=== PATIENT | female | born 1995 | race Hispanic/Latino ===

== ENCOUNTER → 2020-05-12 | Outpatient (CLI) | payer OTHER ==
[~2020-05-12] MED LIST: ASPI-161 PO; PRENTAB53 PO
== END ==
LOC: M RAD 13:15
PROVIDERS: ATTEND Registered Nurse Maternal Newborn
DX: Z34.83 Encounter for supervision of other normal pregnancy, third trimester (principal); Z3A.35 35 weeks gestation of pregnancy

== ENCOUNTER 2020-05-21 08:14 | Inpatient (IN) | payer OTHER ==
[2020-05-21] MEDS ORDERED: miSOPROStol 25 MCG 1/4 TAB (S0191) As Ordered ONE (10:14)
[2020-05-21] MEDS ORDERED: miSOPROStol 50 MCG 1/2 TAB (S0191) As Ordered ONE ×2 (14:13→19:29)
[2020-05-22] MEDS ORDERED: OXYTOCIN 30 UNITS IN 0.9% NaCl 500ML IV BAG (J2590) As Ordered ONE (08:54)
[2020-05-22] MEDS ORDERED: FENTANYL 2MCG/ML ROPIVACAINE 0.2% IN 0.9% NACL 100ML IVBAG As Ordered ONE (17:19)
[2020-05-23] MEDS ORDERED: ACETAMINOPHEN 325 MG TAB As Ordered ONE (12:05)
[2020-05-23] MEDS ORDERED: PRENTAB53 PO (14:30)
[2020-05-23] MEDS ORDERED: ASPI-161 PO (14:30)
[2020-05-23] MEDS ORDERED: MEASLES,MUMPS,RUBELLA VACCINE INJ (MMR-II) (90707) SQ SCH (14:45)
[2020-05-23] MEDS ORDERED: RHOGAM 300 MCG (1500 IU) INJ (J2790) IM SCH (14:45)
[2020-05-23] MEDS ORDERED: IBUPROFEN 800 MG TAB PO PRN (14:45)
[2020-05-23] MEDS ORDERED: DOCUSATE SODIUM 100 MG CAP PO PRN (14:45)
[2020-05-23] MEDS ORDERED: MOM 30ML SUSPENSION UDC PO PRN (14:45)
[2020-05-23] MEDS ORDERED: ANUSOL HC CREAM 30GM TOP PRN (14:45)
[2020-05-23] MEDS ORDERED: ACETAMINOPHEN TAB 650MG DOSE (2X325MG) PO PRN (14:45)
[2020-05-23] MEDS ORDERED: METHYLERGONOVINE MALEATE 0.2 MG TAB PO PRN (14:45)
--- NOTE | 2020-07-11 07:06 | HPE ---
DATE OF ADMISSION: 05/21/2020 A 24-year-old 1, para 0, last menstrual period (LMP) 09/05/2019, estimated date of confinement (EDC) 06/11/2020 at 37 weeks of gestation, admitted for induction of labor for small for gestation age. RISK FACTORS: She had gastric bypass, elevated quad screen. LABORATORY DATA: O positive, HIV negative, hepatitis negative, RPR negative, rubella immune, Varicella immune, urine negative. Gonorrhea and chlamydia are negative. GBS negative. A1c was 4.7, glucose was 68. Blood pressure presently 103/82, respirations 18, pulse 67, temperature 96. Urine is 1015, pH of 5, positive leuks, and 1+ protein. Ultrasound on April 27 indicated small for gestation age (SGA) at 3.82 pounds. Grade 1 placenta. Systolic/diastolic (S/D) ratio was normal. On 05/08/2020, at [facility] agreed with SGA as opposed to IUGR, 4 pounds 7 ounces. Placenta and S/D ratio were normal. On 05/17/2020, 5 pounds 1 ounce, 2259 grams, diagnosed as SGA, Placenta was normal, and S/D ratio was normal. Patient was electively booked for induction of labor. On examination, no distress. Symphysis fundus height is 36, vertex presenting, posterior, 1 cm, thick, -3 station. No discharge and no bleeding. We discussed the risks and benefits of induction of labor, including the possibility for placental insufficiency related to small for gestational age, non reassuring heart with surgical intervention by section, surgical intervention because of a large BMA, and previous Lazaro-en-Y procedure. Our plan of care was to use Cytotec by mouth, step-wising dose from 25 mg up, after which when cervix is favorable, possibility of a balloon or balloon catheter and/or Pitocin. After asking all questions, case to proceed, category 1 strip. Cytotec was ordered. MTDD
--- NOTE | 2020-07-15 08:39 | IPN ---
DATE: 05/22/2020 SUBJECTIVE: This is a 24-year-old 1 para 0. She is at 37 and 1 weeks of gestation, induction of labor for small for gestational age. She had three LOTS of Misoprostol overnight, had a few contractions, slept overnight, Category I strip presently. RECOMMENDATIONS AND PLAN: Our plan of care is to have breakfast, shower and restart with Cytotec possibly using a Doll bulb and/or Pitocin when cervix becomes amenable to that method of induction of labor. Patient expressed an understanding of the plan of care. KEN
--- NOTE | 2020-07-15 08:41 | IPN ---
DATE: 05/21/2020 TIME: 2120 hours This lady was admitted at 37 weeks because of small for gestational age induction of labor. She had initially 25 mg Cytotec per os, had no contractions, no decelerations, had a category 1 strip. She was up to 50 mg by mouth 4 hours later, again just having some minimal tightenings and contractions. Therefore, a third dose of 50 mg by mouth was given and she was having some more increased uterine irritability, she had moderate variability with no contractions, no decelerations. Our plan of care, is to allow her to sleep overnight if she can without increasing the misoprostol or Cytotec and reestablish evaluation of cervix in the morning with the possibility of Pitocin and/or a Cooks catheter. The patient expressed understanding and plan of care. Category 1 strip. Safe to proceed. MTDD
[2020-08-01 10:03] LABS: HEMATOCRIT 35.7 % (36.0-47.0); HEMOGLOBIN 12.1 g/dl (12.0-15.5); MEAN CORPUSCULAR HEMOGLOBIN 28.8 pg (27.0-33.0); MEAN CORPUSCULAR HGB CONC 33.9 g/dl (32.0-36.5); PLATELET COUNT, AUTOMATED 224 10^3/uL (150-450); WHITE BLOOD COUNT 7.8 10^3/uL (4.0-10.0)
== END 2020-05-24 17:15 | disposition home or self-care (01) | DRG 807 ==
LOC: M OBS 08:14
PROVIDERS: ADMIT Obstetrics & Gynecology; ATTEND Obstetrics & Gynecology
PROC: 3E0DXGC Introduction of Other Therapeutic Substance into Mouth and Pharynx, External Approach (ICD-10-PCS; 2020-05-21)
PROC: 10D07Z6 Extraction of Products of Conception, Vacuum, Via Natural or Artificial Opening (ICD-10-PCS; principal; 2020-05-22)
PROC: 0HQ9XZZ Repair Perineum Skin, External Approach (ICD-10-PCS; 2020-05-22)
PROC: 3E033VJ Introduction of Other Hormone into Peripheral Vein, Percutaneous Approach (ICD-10-PCS; 2020-05-22)
DX: O36.5930 Maternal care for other known or suspected poor fetal growth, third trimester, not applicable or unspecified (principal); Z37.0 Single live birth; O70.0 First degree perineal laceration during delivery; Z3A.37 37 weeks gestation of pregnancy; O76 Abnormality in fetal heart rate and rhythm complicating labor and delivery

== ENCOUNTER → 2020-08-17 | Outpatient (CLI) | payer OTHER ==
--- NOTE | 2020-08-18 03:16 | REP ---
INDICATION: LOW BACK PAIN COMPARISON: None. TECHNIQUE: AP, lateral, flexion/extension, bilateral oblique, and coned-down views. FINDINGS: Alignment and lordosis is maintained. The vertebral bodies including transverse process and spinous processes are intact and normal. There is no evidence for acute fracture / compression injury or subluxation. No evidence for spondylolysis or spondylolisthesis. No significant degenerative change is noted. IMPRESSION: Normal lumbosacral spine radiograph series. <Electronically signed by Kwesi Joshua > 08/18/20 [id number]
== END ==
LOC: M RAD 11:34
PROVIDERS: ATTEND Physician Assistant
DX: M54.5 Low back pain (principal)

== ENCOUNTER → 2021-08-23 | Outpatient (CLI) | payer OTHER ==
[2021-08-23 14:04] LABS: BASO % 0.1 % (0.0-1.0); EOS # 0.1 10^3/uL (0.0-0.5); EOS % 1.3 % (0.0-3.0); HEMOGLOBIN 8.9 g/dl (12.0-15.5); LYMPH # 2.2 10^3/uL (1.5-5.0); LYMPH % 32.6 % (24.0-44.0); MEAN CORPUSCULAR HEMOGLOBIN 19.9 pg (27.0-33.0); MEAN CORPUSCULAR HGB CONC 28.7 g/dl (32.0-36.5); MEAN CORPUSCULAR VOLUME 69.4 fl (80.0-96.0); MONO # 0.5 10^3/uL (0.0-0.8); MONO % 6.9 % (2.0-8.0); NEUTROPHILS # 3.9 10^3/uL (1.5-8.5); NEUTROPHILS % 58.8 % (36.0-66.0); PLATELET COUNT, AUTOMATED 391 10^3/uL (150-450); RED BLOOD COUNT 4.47 10^6/uL (4.00-5.40); WHITE BLOOD COUNT 6.7 10^3/uL (4.0-10.0)
[2021-08-23 15:17] LABS: HEPATITIS C VIRUS ABY INDEX 0.1 INDEX (<0.8); HIV 1&2 SCREEN CENTAUR NEGATIVE (NEGATIVE)
[2021-08-23 15:36] LABS: GC DNA AMPLIFICATION NEGATIVE (NEGATIVE)
== END ==
LOC: M PLALAB 10:52
PROVIDERS: ATTEND Obstetrics & Gynecology
DX: Z34.91 Encounter for supervision of normal pregnancy, unspecified, first trimester (principal); Z3A.00 Weeks of gestation of pregnancy not specified

== ENCOUNTER → 2021-11-02 | Outpatient (CLI) | payer OTHER | LOC: M PLALAB 12:34 | PROVIDERS: ATTEND Advanced Practice Midwife | DX: Z34.82 Encounter for supervision of other normal pregnancy, second trimester (principal) ==

== ENCOUNTER → 2021-11-14 | Outpatient (CLI) | payer OTHER | LOC: M WHC 11:51 | PROVIDERS: ATTEND Advanced Practice Midwife | DX: O99.012 Anemia complicating pregnancy, second trimester (principal); Z3A.20 20 weeks gestation of pregnancy ==

== ENCOUNTER → 2021-12-19 | Outpatient (CLI) | payer OTHER | LOC: M WHC 12-18 14:51 | PROVIDERS: ATTEND Obstetrics & Gynecology | DX: Z36.2 Encounter for other antenatal screening follow-up (principal); Z3A.25 25 weeks gestation of pregnancy ==

== ENCOUNTER → 2021-12-25 | Outpatient (CLI) | payer OTHER ==
[2021-12-25 13:19] LABS: HEMATOCRIT 25.9 % (36.0-47.0); HEMOGLOBIN 7.5 g/dl (12.0-15.5); MEAN CORPUSCULAR HEMOGLOBIN 19.3 pg (27.0-33.0); MEAN CORPUSCULAR VOLUME 66.8 fl (80.0-96.0); PLATELET COUNT, AUTOMATED 367 10^3/uL (150-450); RED BLOOD COUNT 3.88 10^6/uL (4.00-5.40); WHITE BLOOD COUNT 7.3 10^3/uL (4.0-10.0)
[2021-12-25 14:55] LABS: GC DNA AMPLIFICATION NEGATIVE (NEGATIVE)
== END ==
LOC: M PLALAB 09:49
PROVIDERS: ATTEND Obstetrics & Gynecology
DX: Z36.9 Encounter for antenatal screening, unspecified (principal); Z3A.24 24 weeks gestation of pregnancy

== ENCOUNTER 2022-01-08 14:33 | Outpatient (CLI) | payer OTHER ==
[~2022-01-08 14:33] MED LIST changes: +IRON SUCROSE 200 MG in NS 100 ML OVER 1 HR IV ONE
[2022-01-08 14:47] VITALS: BP 151/70
[2022-01-08 16:03] VITALS: BP 139/64
== END 2022-01-08 16:04 | disposition home or self-care (01) ==
LOC: M INFU 14:33
PROVIDERS: ATTEND Registered Nurse
DX: O99.013 Anemia complicating pregnancy, third trimester (principal); D50.9 Iron deficiency anemia, unspecified; Z3A.28 28 weeks gestation of pregnancy
CPT/HCPCS: 96365; J1756

== ENCOUNTER 2022-01-23 11:40 | Outpatient (CLI) | payer OTHER ==
[~2022-01-23] VITALS: Ht 172.7 cm; Wt 61.2 kg
[2022-01-23 13:34] VITALS: BP 135/64
== END 2022-01-23 13:35 | disposition home or self-care (01) ==
LOC: M INFU 11:40
PROVIDERS: ATTEND Registered Nurse
DX: O99.019 Anemia complicating pregnancy, unspecified trimester (principal); D50.9 Iron deficiency anemia, unspecified; Z91.013 Allergy to seafood; Z91.010 Allergy to peanuts; Z3A.28 28 weeks gestation of pregnancy
CPT/HCPCS: 96365; J1756

== ENCOUNTER → 2022-02-28 | Outpatient (CLI) | payer OTHER ==
[~2022-02-28] VITALS: Ht 172.7 cm; Wt 61.0 kg
[~2022-02-28] MED LIST changes: -IRON SUCROSE 200 MG in NS 100 ML OVER 1 HR IV ONE; +IRON SUCROSE 300 MG in NS 250 ML OVER 90 MIN. IV ONE
[2022-02-28 11:00] VITALS: BP 135/73
[2022-02-28 13:04] VITALS: BP 129/69
== END ==
LOC: M INFU 10:39
PROVIDERS: ATTEND Registered Nurse
DX: O99.013 Anemia complicating pregnancy, third trimester (principal); Z3A.34 34 weeks gestation of pregnancy; D50.9 Iron deficiency anemia, unspecified; Z91.013 Allergy to seafood; Z91.010 Allergy to peanuts
CPT/HCPCS: 96365; 96366; J1756

== ENCOUNTER 2022-03-07 10:34 | Outpatient (CLI) | payer OTHER ==
[~2022-03-07] VITALS: Ht 172.7 cm; Wt 61.0 kg
[2022-03-07 10:45] VITALS: BP 137/79
[2022-03-07 12:55] VITALS: BP 136/63
== END 2022-03-07 13:00 | disposition home or self-care (01) ==
LOC: M INFU 10:34
PROVIDERS: ATTEND Registered Nurse
DX: O99.013 Anemia complicating pregnancy, third trimester (principal); D64.9 Anemia, unspecified; Z3A.34 34 weeks gestation of pregnancy; Z91.013 Allergy to seafood; Z91.010 Allergy to peanuts
CPT/HCPCS: 96365; 96366; J1756

== ENCOUNTER 2022-03-14 10:39 | Outpatient (CLI) | payer OTHER ==
[~2022-03-14] VITALS: Ht 172.7 cm; Wt 61.0 kg
[2022-03-14 10:58] VITALS: BP 152/80
[2022-03-14 12:00] VITALS: BP 130/67
[2022-03-14 12:45] VITALS: BP 125/61
== END 2022-03-14 12:45 | disposition home or self-care (01) ==
LOC: M INFU 10:39
PROVIDERS: ATTEND Registered Nurse
DX: O99.013 Anemia complicating pregnancy, third trimester (principal); Z3A.00 Weeks of gestation of pregnancy not specified
CPT/HCPCS: 96365; 96366; J1756

== ENCOUNTER 2022-03-17 09:36 | Inpatient (IN) | payer OTHER ==
[2022-03-17] VITALS (47 sets, daily range): BP systolic 96–145; BP diastolic 54–79
[~2022-03-17] VITALS: Ht 172.7 cm; Wt 113.3 kg
[~2022-03-17 09:36] MED LIST changes: -IRON SUCROSE 300 MG in NS 250 ML OVER 90 MIN. IV ONE
[2022-03-17] MEDS ORDERED: FOLTTAB9 PO (10:38)
[2022-03-17] MEDS ORDERED: HOME MED LIST COMPLETE! XX SCH (10:40)
[2022-03-17] MEDS ORDERED: LR 1,000 ML IV SCH (10:55)
[2022-03-17] MEDS ORDERED: OXYTOCIN INJ 10 UNITS/ML VIAL (J2590) IV PRN (10:55)
[2022-03-17] MEDS ORDERED: LIDOCAINE 1% MDV 20ML VIAL INFIL PRN (10:55)
[2022-03-17] MEDS ORDERED: LACTATED RINGER'S 1000 ML IV STA (10:55)
[2022-03-17] MEDS ORDERED: OXYTOCIN INJ 10 UNITS/ML VIAL (J2590) IM PRN (10:55)
[2022-03-17] MEDS ORDERED: OXYTOCIN DRIP 30 UNITS in IV 1 EA IV SCH (10:55)
[2022-03-17] MEDS ORDERED: CARBOPROST TROMETHAMINE 250 MCG/ML AMP IM PRN (10:55)
[2022-03-17] MEDS ORDERED: TRANEXAMIC ACID INJection 1,000 MG in NS 100 ML IV PRN (10:55)
[2022-03-17] MEDS ORDERED: PENICILLIN G POTASSIUM IV 5 MU in D5W MINI-BAG PLUS 100 ML IV STA (10:55)
[2022-03-17] MEDS ORDERED: METHYLERGONOVINE MALEATE 0.2 MG/ML VIAL (J2210) IM PRN (10:55)
[2022-03-17] MEDS ORDERED: OXYTOCIN DRIP 30 UNITS in IV 1 EA IV PRN ×6 (10:55)
[2022-03-17 11:21] LABS: HEMATOCRIT 32.8 % (36.0-47.0); MEAN CORPUSCULAR HEMOGLOBIN 23.1 pg (27.0-33.0); MEAN CORPUSCULAR HGB CONC 30.5 g/dl (32.0-36.5); MEAN CORPUSCULAR VOLUME 75.9 fl (80.0-96.0); PLATELET COUNT, AUTOMATED 312 10^3/uL (150-450); RED BLOOD COUNT 4.32 10^6/uL (4.00-5.40)
[2022-03-17] MEDS: PENICILLIN G POTASSIUM IV 2.5 MU in IV 1 EA IV SCH ×2 (15:48→19:49)
[2022-03-17] MEDS: LR 1,000 ML IV SCH ×2 (18:13→20:58)
[2022-03-17] MEDS ORDERED: FENTANYL 2MCG/ML ROPIVACAINE 0.2% IN 0.9% NACL 100ML IVBAG As Ordered ONE (18:19)
[2022-03-17] MEDS ORDERED: LR 500 ML IV PRN (19:15)
[2022-03-17] MEDS ORDERED: NALOXONE INJ 0.4MG/1ML VIAL (J2310 PER 1MG) IV PRN (19:15)
[2022-03-17] MEDS ORDERED: diphenhydrAMINE 50MG/ML VIAL (J1200) IV PRN (19:15)
[2022-03-17] MEDS ORDERED: ONDANSETRON 4MG/2ML VIAL IV PRN (19:15)
[2022-03-17] MEDS ORDERED: EPIDURAL/PCA KEYS XX PRN (19:15)
[2022-03-17] MEDS: FENTANYL/ROPIVACAINE/NACL BAG 100 ML EPIDURAL SCH (19:46)
[2022-03-17] MEDS: ePHEDrine SULFATE 25 MG/5 ML(5MG/ML) SYRINGE IVP PRN ×3 (21:53→22:52)
[2022-03-18] VITALS (24 sets, daily range): BP systolic 87–126; BP diastolic 48–74
[2022-03-18] MEDS: PENICILLIN G POTASSIUM IV 2.5 MU in IV 1 EA IV SCH ×4 (00:04→11:31)
[2022-03-18] MEDS: FENTANYL/ROPIVACAINE/NACL BAG 100 ML EPIDURAL SCH (03:00)
[2022-03-18] MEDS: LR 1,000 ML IV SCH ×3 (04:50→08:07)
[2022-03-18] MEDS ORDERED: OXYTOCIN 30 UNITS IN 0.9% NaCl 500ML IV BAG (J2590) As Ordered ONE (12:49)
[2022-03-18] MEDS ORDERED: MOM 30ML SUSPENSION UDC PO PRN (12:50)
[2022-03-18] MEDS ORDERED: METHYLERGONOVINE MALEATE 0.2 MG TAB PO PRN (12:50)
[2022-03-18] MEDS ORDERED: OXYTOCIN DRIP 30 UNITS in IV 1 EA IV SCH ×4 (12:50)
[2022-03-18] MEDS ORDERED: RHOGAM 300 MCG (1500 IU) INJ (J2790) IM SCH (12:50)
[2022-03-18] MEDS ORDERED: DIBUCAINE 1% OINTMENT 30GM TOP PRN (12:50)
[2022-03-18] MEDS ORDERED: ACETAMINOPHEN 500 MG TAB PO PRN (12:50)
[2022-03-18] MEDS ORDERED: ACETAMINOPHEN TAB 650MG DOSE (2X325MG) PO PRN (12:50)
[2022-03-18] MEDS ORDERED: OXYTOCIN INJ 10 UNITS/ML VIAL (J2590) IV ONE (12:50)
[2022-03-18] MEDS ORDERED: ANUSOL HC CREAM 30GM TOP PRN (12:50)
[2022-03-18] MEDS ORDERED: DOCUSATE SODIUM 100MG CAPSULE PO PRN (12:50)
[2022-03-18] MEDS ORDERED: LR 1,000 ML IV SCH (12:50)
[2022-03-18] MEDS: IBUPROFEN 600MG TAB PO PRN (17:38)
[2022-03-19 06:00] VITALS: BP 104/59
[2022-03-19 06:30] LABS: HEMATOCRIT 27.1 % (36.0-47.0); HEMOGLOBIN 8.3 g/dl (12.0-15.5); MEAN CORPUSCULAR HEMOGLOBIN 23.4 pg (27.0-33.0); MEAN CORPUSCULAR HGB CONC 30.6 g/dl (32.0-36.5); MEAN CORPUSCULAR VOLUME 76.6 fl (80.0-96.0); PLATELET COUNT, AUTOMATED 236 10^3/uL (150-450); RED BLOOD COUNT 3.54 10^6/uL (4.00-5.40); WHITE BLOOD COUNT 8.3 10^3/uL (4.0-10.0)
[2022-03-19] MEDS: PRENATAL VITAMINS CHEWABLE TABLET PO SCH (08:30)
[2022-03-19 18:00] VITALS: BP 132/75
[2022-03-19] MEDS: IBUPROFEN 600MG TAB PO PRN (18:27)
[2022-03-20 06:00] VITALS: BP 117/72
[2022-03-20] MEDS: PRENATAL VITAMINS CHEWABLE TABLET PO SCH (08:30)
[2022-03-20] MEDS ORDERED: MEASLES,MUMPS,RUBELLA VACCINE INJ (MMR-II) (90707) SC.IMMUN ONE (09:00)
== END 2022-03-20 11:30 | disposition home or self-care (01) | DRG 807 ==
LOC: M LDI 09:36 → M OBS 03-18 15:29
PROVIDERS: ADMIT Obstetrics & Gynecology; ATTEND Obstetrics & Gynecology
PROC: 10907ZC Drainage of Amniotic Fluid, Therapeutic from Products of Conception, Via Natural or Artificial Opening (ICD-10-PCS; 2022-03-17)
PROC: 3E033VJ Introduction of Other Hormone into Peripheral Vein, Percutaneous Approach (ICD-10-PCS; 2022-03-17)
PROC: 10E0XZZ Delivery of Products of Conception, External Approach (ICD-10-PCS; principal; 2022-03-18)
DX: O36.5990 Maternal care for other known or suspected poor fetal growth, unspecified trimester, not applicable or unspecified (principal); Z37.0 Single live birth; Z3A.38 38 weeks gestation of pregnancy; E66.9 Obesity, unspecified; O99.214 Obesity complicating childbirth; Z68.37 Body mass index [BMI] 37.0-37.9, adult; O99.820 Streptococcus B carrier state complicating pregnancy; Z91.013 Allergy to seafood; Z91.010 Allergy to peanuts